=== PATIENT | female | born 1970 | race Caucasian/White ===

== ENCOUNTER 2018-03-14 09:24 | Emergency (ER) | payer MEDICAID ==
[2018-03-14] MEDS ORDERED: KETOROLAC TROMETHAMINE INJ/PF 30 MG/1 ML SDV IV ONE (09:55)
[2018-03-14] MEDS ORDERED: ONDANSETRON HCL INJ/PF 4 MG/2 ML SDV IV ONE ×2 (09:55→12:09)
[2018-03-14] MEDS ORDERED: FENTANYL CITRATE INJ/PF 100 MCG/2 ML AMPUL IV ONE (09:56)
--- NOTE | 2018-03-14 09:59 | ER Document Report ---
ED Medical Screen (RME) - General Chief Complaint: Possible Kidney Stone Stated Complaint: FLANK PAIN Time Seen by Provider: 03/14/18 09:55 Notes: Patient is here with severe pain in the left lower quadrant that began suddenly around 6:30 AM this morning. She has had a couple of kidney stones in the past and this feels the same. She has nausea and vomiting. Also says she has some fever, chills, sweats. PMH: Hysterectomy, BTL. - Related Data Allergies/Adverse Reactions: carbamazepine Allergy (Verified 03/14/18 09:49) codeine Allergy (Verified 03/14/18 09:49) Past Medical History - Social History Chew tobacco use (# tins/day): No Frequency of alcohol use: Occasional Drug Abuse: None Renal/ Medical History: Reports: Hx Kidney Stones. Denies: Hx Peritoneal Dialysis GI Medical History: Reports: Hx Gastroesophageal Reflux Disease Past Surgical History: Reports: Hx Gynecologic Surgery, Hx Tubal Ligation Physical Exam - Vital signs Vitals: Temp Pulse Resp BP Pulse Ox 97.6 F 63 24 H 159/109 H 100 03/14/18 09:28 03/14/18 09:28 03/14/18 09:28 03/14/18 09:28 03/14/18 09:28 Course - Vital Signs Vital signs: Temp Pulse Resp BP Pulse Ox 97.6 F 63 24 H 159/109 H 100 03/14/18 09:28 03/14/18 09:28 03/14/18 09:28 03/14/18 09:28 03/14/18 09:28
--- NOTE | 2018-03-14 10:50 | RADIOLOGY REPORT (SQ) ---
EXAM DESCRIPTION: CT LTD RENAL STONE PROTOCOL ON COMPLETED DATE/TIME: 03/14/2018 10:33 am REASON FOR STUDY: LLQ pain, sudden COMPARISON: None. TECHNIQUE: CT scan of the abdomen and pelvis performed without intravenous or oral contrast. Images reviewed with lung, soft tissue, and bone windows. Reconstructed coronal and sagittal MPR images revi ewed. All images stored on PACS. All CT scanners at this facility use dose modulation, iterative reconstruction, and/or weight based d osing when appropriate to reduce radiation dose to as low as reasonably achievable (ALARA). [facility]: Dose Right [facility]: CareDose [facility]: Dose Right [facility]: Teradose 4D [facility]: Smart Travel [employer] RADIATION DOSE: CT Rad equipment meets quality standard of care and radiation dose reduction techniq ues were employed. CTDIvol: 7.4 mGy. DLP: 419 mGy-cm.mGy. LIMITATIONS: None. FINDINGS: LOWER CHEST: No significant findings. No nodules or infiltrates. NON-CONTRASTED LIVER, SPLEEN, ADRENALS: Evaluation limited by lack of IV contrast. No identified sign ificant masses. PANCREAS: No masses. No peripancreatic inflammatory changes. GALLBLADDER: No identified stones by CT criteria. No inflammatory changes to suggest cholecystitis. RIGHT KIDNEY AND URETER: No suspicious masses. Assessment limited by lack of IV contrast. No signif icant calcifications. No hydronephrosis or hydroureter. LEFT KIDNEY AND URETER: No suspicious masses. Assessment limited by lack of IV contrast. 2 mm calci fied density in the pelvis to left of midline image 80 is probably in the distal ureter. Moderate h ydronephrosis and hydroureter. AORTA AND RETROPERITONEUM: No aneurysm. No retroperitoneal masses or adenopathy. BOWEL AND PERITONEAL CAVITY: No obvious masses or inflammatory changes. No free fluid. APPENDIX: Normal. PELVIS, BLADDER, AND ABDOMINAL WALL:No abnormal masses. No free fluid. Bladder normal. BONES: No significant findings. OTHER: No other significant finding. IMPRESSION: 2 mm stone distal left ureter. Moderate hydronephrosis. COMMENT: Quality ID # [id number]: Final reports with documentation of one or more dose reduction techniques (e.g., Automated exposure control, adjustment of the mA and/or kV according to patient size, use of iterative reconstruction technique) TECHNICAL DOCUMENTATION: JOB ID: [id number]- All Rights Reserved Reading location - IP/workstation name: [email or web address]
--- NOTE | 2018-03-14 11:19 | ER Document Report ---
ED GI/ - General Chief Complaint: Possible Kidney Stone Stated Complaint: FLANK PAIN Time Seen by Provider: 03/14/18 09:55 Information source: Patient Notes: Patient is a 48-year-old female that presents today with some left lower quadrant and flank "pain". She states it is intermittent, she states nausea with vomiting. She states she was hot at home but has been afebrile and has not taken any antipyretics. She denies any diarrhea, she denies any aggravating or relieving factors. Patient states she has had a history of a kidney stone 2. She has denied any pain with urination. - HPI Patient complains to provider of: Other - See above Onset: Other Timing/Duration: Sudden Quality of pain: Achy Severity at maximum: Moderate Severity in ED: Mild Pain Level: 1 Location: Other - See above Vaginal bleeding (Compared to normal period): None Sexual history: Active Associated symptoms: Other - See above Exacerbated by: Denies Relieved by: Denies Similar symptoms previously: Yes Recently seen / treated by doctor: No - Related Data Allergies/Adverse Reactions: carbamazepine Allergy (Verified 03/14/18 09:49) codeine Allergy (Verified 03/14/18 09:49) Past Medical History - General Information source: Patient - Social History Smoking Status: Current Every Day Smoker Cigarette use (# per day): No Chew tobacco use (# tins/day): No Smoking Education Provided: No Frequency of alcohol use: Occasional Drug Abuse: None Family History: Reviewed & Not Pertinent Patient has suicidal ideation: No Patient has homicidal ideation: No Renal/ Medical History: Reports: Hx Kidney Stones. Denies: Hx Peritoneal Dialysis GI Medical History: Reports: Hx Gastroesophageal Reflux Disease Past Surgical History: Reports: Hx Gynecologic Surgery, Hx Tubal Ligation Review of Systems - Review of Systems Constitutional: denies: Fever EENT: denies: Eye discharge, Nose discharge Respiratory: denies: Short of breath Gastrointestinal: Vomiting Genitourinary: denies: Dysuria Musculoskeletal: denies: Leg swelling Skin: Other - no hives. denies: Rash Neurological/Psychological: Other - no slurred speech -: Yes All other systems reviewed and negative Physical Exam - Vital signs Vitals: Temp Pulse Resp BP Pulse Ox 97.6 F 63 24 H 159/109 H 100 03/14/18 09:28 03/14/18 09:28 03/14/18 09:28 03/14/18 09:28 03/14/18 09:28 Interpretation: Normal Notes: Reviewed vital signs and nursing note as charted by RN. CONSTITUTIONAL: Alert and oriented and responds appropriately to questions. Well -appearing; well-nourished HEAD: Normocephalic; atraumatic CARD: Regular rate and rhythm; no murmurs RESP: Normal chest excursion without splinting or tachypnea; breath sounds clear and equal bilaterally ABD/GI: Normal bowel sounds; non-distended; soft, non-tender currently to deep palpation of all 4 quadrants of the abdomen BACK: The back appears normal and is non-tender to palpation, there is no CVA tenderness EXT: Normal ROM in all joints; non-tender to palpation, no edema SKIN: Normal color for age and race; warm; no acute lesions noted NEURO: Moves all extremities equally; Motor and sensory function intact PSYCH: The patient's mood and manner are appropriate. Grooming and personal hygiene are appropriate. Course - Re-evaluation Re-evalutation: Given the history and physical examination with the pain much improved from triage to my examination, we will obtain imaging and laboratory work to evaluate for the possibility of a kidney stone or other acute intra-abdominal process. 03/14/18 11:18 Patient's pain is still well controlled. CT scan is recorded. Awaiting urine analysis. 03/14/18 11:56 Labs and urine analysis as recorded. Urine culture has been sent. I will start the patient on Bactrim and provide pain and nausea medications. Pain is controlled at this time. I will provide urology outpatient follow-up with strict return precautions. - Vital Signs Vital signs: Temp Pulse Resp BP Pulse Ox 97.6 F 63 24 H 159/109 H 100 03/14/18 09:28 03/14/18 09:28 03/14/18 09:28 03/14/18 09:28 03/14/18 09:28 - Laboratory Result Diagrams: 03/14/18 10:12 03/14/18 10:12 Laboratory results interpreted by me: 03/14/18 03/14/18 03/14/18 09:56 10:12 10:12 WBC 14.2 H Hgb 15.8 H Seg Neutrophils % 79.4 H Absolute Neutrophils 11.3 H Carbon Dioxide 20 L Glucose 113 H Urine Protein 30 H Urine Ketones 25 H Ur Leukocyte Esterase TRACE H Discharge - Discharge Clinical Impression: Kidney stone on left side Condition: Good Disposition: HOME, SELF-CARE Additional Instructions: Come back immediately for any increased pain, change in location or quality of pain, fevers or vomiting, inability to urinate, or any other acute problems. Please make sure that you take the antibiotics as prescribed and follow-up with the urologist as provided. Prescriptions: Ondansetron [Zofran Odt 4 mg Tablet] 1 tab PO Q6H #15 tab.rapdis Oxycodone HCl/Acetaminophen [Percocet 5-325 mg Tablet] 1 - 2 tab PO ASDIR PRN # 15 tablet PRN Reason: Sulfamethoxazole/Trimethoprim [Bactrim Ds Tablet] 1 each PO BID #14 tablet Tamsulosin HCl [Flomax 0.4 mg Cap.sr] 0.4 mg PO DAILY #7 cap.sr.24h Referrals: GABBI MOORE II, MD [ALYSSA HUSAIN] - Follow up as needed
[2018-03-14 11:30] LABS: ADD MANUAL MICROSCOPIC YES
[2018-03-14] MEDS ORDERED: SULFAMETHOXAZOLE/TRIMETHOPRIM 800-160 MG TABLET PO ONE (11:55)
[2018-03-14] MEDS ORDERED: TAMSULOSIN HCL 0.4 MG CAP.SR.24H PO ONE (12:02)
[2018-03-14] MEDS ORDERED: MORPHINE SULFATE 10 MG/ML INJ IV ONE (12:09)
[2018-03-14 12:23] VITALS: BP 134/87
[2018-03-14 12:33] LABS: TOTAL CELLS COUNTED % (AUTO) 100 %
== END 2018-03-14 12:26 | disposition home or self-care (01) ==
LOC: ER 09:24
DX: N13.2 Hydronephrosis with renal and ureteral calculous obstruction (principal); R11.2 Nausea with vomiting, unspecified; F17.200 Nicotine dependence, unspecified, uncomplicated; Z88.6 Allergy status to analgesic agent; Z88.5 Allergy status to narcotic agent
CPT/HCPCS: 96376; 99284; 96374; 96375; 36415; 83690; 85025; 80053; 81001; 76380; J3010; J1885; J2270; J3490 ×2; J2405